=== PATIENT | male | born 1965 | race African-American/Black ===

== ENCOUNTER 2017-10-25 17:20 | Emergency (ER) | payer BC ==
[~2017-10-25] VITALS: Ht 177.8 cm; Wt 97.3 kg
[~2017-10-25 17:20] MED LIST: PREDNISONE10 MG PO; ZOFRAN4 MG PO
[2017-10-25 18:06] LABS: HEMATOCRIT 43.5 % (38.0-50.0); HEMOGLOBIN 14.9 G/DL (12.5-16.6); MCH 30.5 PG (29.0-34.0); MCHC 34.3 G/DL (30.0-36.0); MCV 89.1 FL (86-99); PLATELET COUNT 172 K/uL (156-360); RBC DIS.WIDTH-CV 12.8 % (11.8-14.6); RBC DIS.WIDTH-SD 42.1 % (39-53); RED BLOOD COUNT 4.88 M/uL (4.00-5.50); WHITE BLOOD COUNT 6.5 K/uL (4.1-10.2)
[2017-10-25 18:14] LABS: CHLORIDE 104 mEq/L (99-109); POTASSIUM 4.4 mEq/L (3.7-5.4); SODIUM 141 mEq/L (136-147)
[2017-10-25 18:15] LABS: GLUCOSE 100 mg/dL (70-99)
[2017-10-25 18:19] LABS: GFR ESTIMATE (CALCULATED) > 59 mL/min/ (58.99-99999)
[2017-10-25 18:20] LABS: UREA NITROGEN (BUN) 14 mg/dL (9-23)
[2017-10-25 18:26] LABS: TROP-I INTERPRETATION NEGATIVE; TROPONIN-I < 0.01 ng/mL (0.0-0.30)
[2017-10-25 21:46] LABS: TROP-I INTERPRETATION NEGATIVE; TROPONIN-I < 0.01 ng/mL (0.0-0.30)
[2017-10-25] MEDS ORDERED: ANTIVERT25 MG PO (21:54)
[2017-10-25 22:00] VITALS: BP 132/79
== END 2017-10-25 22:00 | disposition home or self-care (01) ==
LOC: EME 17:20
PROVIDERS: Nurse Practitioner Family
DX: R42 Dizziness and giddiness (principal); R07.89 Other chest pain; R94.31 Abnormal electrocardiogram [ECG] [EKG]; G93.5 Compression of brain; N18.9 Chronic kidney disease, unspecified; E78.5 Hyperlipidemia, unspecified; Z87.448 Personal history of other diseases of urinary system
CPT/HCPCS: 70450; 71046; 80048; 84484; 85027; 93005; 99281; 99284